=== PATIENT | male | born 1980 | race African-American/Black ===

== ENCOUNTER 2019-05-10 14:12 | Emergency (ER) | payer BC, SELFPAY ==
[2019-05-10] MEDS ORDERED: LIDOCAINE 1% W/EPI 1:100,000 MDV 50 ML VIAL ONE (15:48)
[2019-05-10] MEDS ORDERED: BUPIVACAINE 0.5% PF 10 ML VIAL ONE (15:48)
--- NOTE | 2019-05-10 16:23 | EDPHYS ---
Physician Documentation [facility] Name: Jason Daigle Age: 39 yrs Sex: Male : 1980 Arrival Date: 05/10/2019 Time: 14:17 Bed 12 Private MD: ED Physician Tommy Rodriguez HPI: 05/10 15:25 This 39 yrs old Black Male presents to ER via Ambulatory with complaints of Mouth cp Problem. 15:25 The patient presents with broken tooth/teeth, pain, swelling. The problem is located in cp the left lower jaw. 15:25 Onset: The symptoms/episode began/occurred 2 day(s) ago. cp 15:25 Duration: The symptoms are continuous, and are steadily getting worse. Associated signs cp and symptoms: Pertinent positives: pain, Pertinent negatives: chills, dysphagia, fever, inability to eat, vomiting. Severity of symptoms: in the emergency department the symptoms are unchanged, despite home interventions. Historical: - Allergies: 14:23 No Known Allergies; hj - PMHx: 14:23 None; hj - PSHx: 14:23 None; hj - Immunization history:: Adult Immunizations up to date. - Social history:: Smoking status: Patient/guardian denies using tobacco, Patient/guardian denies using alcohol. - Ebola Screening: : Patient negative for fever greater than or equal to 101.5 degrees Fahrenheit, and additional compatible Ebola Virus Disease symptoms Patient denies exposure to infectious person Patient denies travel to an Ebola-affected area in the 21 days before illness onset. ROS: 15:45 Constitutional: Negative for body aches, chills, fever. cp 15:45 ENT: Positive for dental pain. 15:45 Eyes: Negative for injury, pain, redness, and discharge. cp 15:45 Respiratory: Negative for shortness of breath. 15:45 Abdomen/GI: Negative for abdominal pain, vomiting, diarrhea, constipation. 15:45 Skin: Positive for swelling, of the left lower jaw. 15:45 Neuro: Negative for altered mental status, headache. 15:45 All other systems are negative. Exam: 15:48 Constitutional: The patient appears in no acute distress, alert, awake, non-toxic, well cp developed, well nourished. 15:48 Head/face: Noted is swelling, that is mild, of the left mandible, tenderness, that is mild, of the left mandible. 15:48 Eyes: Periorbital structures: appear normal, Conjunctiva: normal, no exudate, no cp injection, Lids and lashes: appear normal, bilaterally. 15:48 ENT: External ear(s): are unremarkable, Ear canal(s): are normal, clear, TM's: dullness, bilaterally, Nose: is normal, Mouth: Lips: moist, Oral mucosa: moist, Gums: reddened, swollen, on the left lower gumline, Tongue: is normal, abscess, of the left lower outer gumline, drooling, is not appreciated, Posterior pharynx: Airway: normal, Dental exam: dental caries, that is moderate, diffusely, fractured teeth are noted, specifically the lower left first bicuspid (#21), pain, that is moderate, specifically in the lower left first bicuspid (#21), Voice: is normal. 15:48 Neck: ROM/movement: is normal, is supple, without pain, no range of motions limitations, no nuchal rigidity. 15:48 Chest/axilla: Inspection: normal. 15:48 Cardiovascular: Rate: tachycardic, Rhythm: regular. 15:48 Respiratory: the patient does not display signs of respiratory distress, Respirations: normal. Vital Signs: 14:23 BP 136 / 78; Pulse 100; Resp 18; Temp 98.9(O); Pulse Ox 98% on R/A; Weight 142.88 kg; hj Height 5 ft. 11 in. (180.34 cm); Pain 6/10; 14:23 Body Mass Index 43.93 (142.88 kg, 180.34 cm) Procedures: 16:20 I \T\ D: Incision and drainage was performed for an abscess of the lower left first cp bicuspid (#21) Anesthetized with 6 ccs of 1% lidocaine with epi and 0.5% marcaine. Incised with #11 blade. Drained small amount purulent fluid. the patient tolerated the procedure well. MDM: 14:47 Patient medically screened. cp 16:20 Data reviewed: vital signs, nurses notes, and as a result, I will discharge patient. cp 16:20 Differential diagnosis: dental caries, dental abscess, pericoronitis. Counseling: I had cp a detailed discussion with the patient and/or guardian regarding: the historical points, exam findings, and any diagnostic results supporting the discharge/admit diagnosis, the need for outpatient follow up, for definitive care, a dentist, maxillary and facial surgery, to return to the emergency department if symptoms worsen or persist or if there are any questions or concerns that arise at home. Response to treatment: the patient's symptoms have markedly improved after treatment, and as a result, I will discharge patient. Administered Medications: 16:00 Drug: Marcaine (0.5 %) 5 ml {Note: administered by KARISSA Alaniz to affected area.} ss Volume: 10 ml; Route: Infiltration; 16:00 Drug: Lidocaine-Epinephrine -1%: (1:100,000) 5 ml {Note: administered by winston Alaniz.} Volume: 20 ml; Route: Infiltration; Disposition: 16:45 Chart complete. cp 05/11 07:51 Co-signature as Attending Physician, Tommy Rodriguez MD I agree with the assessment and kdr plan of care. Disposition: 05/10/19 16:22 Discharged to Home. Impression: Dental caries, unspecified, Periapical abscess without sinus. - Condition is Stable. - Discharge Instructions: Dental Abscess, Dental Caries, Adult. - Prescriptions for Peridex 0.12 % Mucous Membrane mouthwash - place 15 milliliter by MUCOUS MEMBRANE route 2 times per day after brushing teeth, swish in mouth for 30 seconds then spit out; 1 bottle. Clindamycin HCl 300 mg Oral Capsule - take 1 capsule by ORAL route every 6 hours for 10 days; 40 capsule. Tylenol- Codeine #3 300-30 mg Oral Tablet - take 2 tablets by ORAL route every 6 hours As needed; 15 tablet. - Medication Reconciliation Form, Thank You Letter, Antibiotic Education, Prescription Opioid Use form. - Follow up: Yariel Hernandez DDS; When: 1 - 2 days; Reason: Recheck today's complaints. - Problem is new. - Symptoms have improved. Signatures: Tommy Rodriguez MD MD [facility] Yandy Sultana RN RN Marty Horowitz RN RN Donnell Padron PA PA cp Corrections: (The following items were deleted from the chart) 05/10 16:36 16:22 05/10/2019 16:22 Discharged to Home. Impression: Dental caries, unspecified; ss Periapical abscess without sinus. Condition is Stable. Forms are Medication Reconciliation Form, Thank You Letter, Antibiotic Education, Prescription Opioid Use. Follow up: Yariel Hernandez; When: 1 - 2 days; Reason: Recheck today's complaints. Problem is new. Symptoms have improved. cp
--- NOTE | 2019-05-10 16:23 | ER ---
Nurse's Notes [facility] Name: Jason Daigle Age: 39 yrs Sex: Male : 1980 Arrival Date: 05/10/2019 Time: 14:17 Bed 12 Private MD: Diagnosis: Dental caries, unspecified;Periapical abscess without sinus Presentation: 05/10 14:21 Presenting complaint: Patient states: i think i irritated my gums or something, my L hj jaw is swollen and it started 2 nights ago; denies fever and chills;. Transition of care: patient was not received from another setting of care. Onset of symptoms was May 10, 2019. Risk Assessment: Do you want to hurt yourself or someone else? Patient reports no desire to harm self or others. Initial Sepsis Screen: Does the patient meet any 2 criteria? No. Patient's initial sepsis screen is negative. Does the patient have a suspected source of infection? No. Patient's initial sepsis screen is negative. Care prior to arrival: None. 14:21 Method Of Arrival: Ambulatory 14:21 Acuity: HENRY 4 hj Triage Assessment: 14:21 General: Appears in no apparent distress. uncomfortable, Behavior is calm, cooperative, hj appropriate for age. 14:21 Pain:. hj Historical: - Allergies: 14:23 No Known Allergies; hj - PMHx: 14:23 None; hj - PSHx: 14:23 None; hj - Immunization history:: Adult Immunizations up to date. - Social history:: Smoking status: Patient/guardian denies using tobacco, Patient/guardian denies using alcohol. - Ebola Screening: : Patient negative for fever greater than or equal to 101.5 degrees Fahrenheit, and additional compatible Ebola Virus Disease symptoms Patient denies exposure to infectious person Patient denies travel to an Ebola-affected area in the 21 days before illness onset. Screenin:21 Abuse screen: Denies threats or abuse. Denies injuries from another. Nutritional hj screening: No deficits noted. Tuberculosis screening: No symptoms or risk factors identified. Fall Risk None identified. Assessment: 16:07 Reassessment: Patient appears in no apparent distress at this time. Patient is alert, ss oriented x 3, equal unlabored respirations, skin warm/dry/pink. Vital Signs: 14:23 BP 136 / 78; Pulse 100; Resp 18; Temp 98.9(O); Pulse Ox 98% on R/A; Weight 142.88 kg; hj Height 5 ft. 11 in. (180.34 cm); Pain 6/10; 14:23 Body Mass Index 43.93 (142.88 kg, 180.34 cm) ED Course: 14:17 Patient arrived in ED. mr 14:22 Triage completed. hj 14:23 Arm band placed on left wrist. hj 14:23 Patient has correct armband on for positive identification. Bed in low position. Call light in reach. Side rails up X 1. 14:40 Donnell Padron PA is PHCP. cp 14:40 Tommy Rodriguez MD is Attending Physician. cp 15:02 Marty Saleh, RN is Primary Nurse. hj 16:20 Yariel Hernandez DDS is Referral Physician. cp 16:34 No provider procedures requiring assistance completed. Patient did not have IV access ss during this emergency room visit. Administered Medications: 16:00 Drug: Marcaine (0.5 %) 5 ml {Note: administered by KARISSA Alaniz to affected area.} ss Volume: 10 ml; Route: Infiltration; 16:00 Drug: Lidocaine-Epinephrine -1%: (1:100,000) 5 ml {Note: administered by winston Alaniz.} Volume: 20 ml; Route: Infiltration; Outcome: 16:22 Discharge ordered by . cp 16:34 Discharged to home ambulatory. ss 16:34 Condition: good 16:34 Discharge instructions given to patient, Instructed on discharge instructions, follow up and referral plans. medication usage, Demonstrated understanding of instructions, follow-up care, medications, Prescriptions given X 3. 16:36 Patient left the ED. ss Signatures: Jose Kelsey SultanaYandy RN RN Marty Horowitz, RN RN Donnell Padron PA PA cp Corrections: (The following items were deleted from the chart) 14:25 14:23 Pulse 100bpm; Resp 18bpm; Pulse Ox 98% RA; Temp 98.9F Oral; 142.88 kg; Height 5 hj ft. 11 in.; BMI: 43.9; Pain 6/10; hj
== END 2019-05-10 16:36 | disposition home or self-care (01) ==
LOC: ER 14:12
PROC: 0C9X0Z0 Drainage of Lower Tooth, Open Approach, Single (ICD-10-PCS; principal; 2019-05-10)
DX: K02.9 Dental caries, unspecified (principal); K04.7 Periapical abscess without sinus
CPT/HCPCS: 99283